=== PATIENT | female | born 1985 | race African-American/Black ===

== ENCOUNTER 2017-05-14 17:12 | Emergency (ER) | payer OTHER ==
[~2017-05-14] VITALS: Ht 160 cm; Wt 121.5 kg
[~2017-05-14 17:12] MED LIST: CYCL-36 PO; IBUP-232 PO; LORT7.5T3 PO; PERM5CRE TOP; Z.0.NO CURRENT MEDS
[2017-05-14 17:13] VITALS: BP 206/111; PULSE 70; RESP 15; TEMP 98.4; O2SAT 100
--- NOTE | 2017-05-14 17:27 | PD ---
Physical Exam Date Seen by Provider: May 14, 2017 Time Seen by Provider: 17:25 Narrative 32-year-old Afro-[place]ian female presents the emergency department with vaginal bleeding for the past 4 weeks. Patient denies any specific pain at this time. She came in because she is feeling weak. She denies fever, chills, or other symptoms. She has no known drug allergies. Last rectal. Started May 01. Patient denies other symptoms at this time. Urinalysis is obtained as well as urine . Vital signs are stable. Patient is awaiting med bed placement. Data Data Last Documented VS Vital Signs Date Time Temp Pulse Resp B/P (MAP) Pulse Ox O2 Delivery O2 Flow Rate FiO2 05/14/17 17:13 98.4 70 15 206/111 (142) 100 MDM Medical Record Reviewed: Yes Supervised Visit with NANCY: Yes Condition: Stable Sundar Taylor May 14, 2017 17:27
[2017-05-14 18:06] LABS: AUTOMATED NEUTROPHIL # 3.6 TH/MM3 (1.8-7.7); BASOPHIL % 0.4 % (0.0-2.0); EOSINOPHIL # 0.1 TH/MM3 (0-0.4); EOSINOPHIL % 1.6 % (0.0-4.0); HEMATOCRIT 33.7 % (35.0-46.0); HEMO FLAGS DIFF FINAL; LYMPH % 35.7 % (9.0-44.0); LYMPHOCYTE # 2.3 TH/MM3 (1.0-4.8); MEAN CELL VOLUME 76.6 FL (80.0-100.0); MEAN CORPUSCULAR HEMOGLOBIN 24.8 PG (27.0-34.0); MEAN CORPUSCULAR HGB CONC 32.3 % (32.0-36.0); MONO % 6.9 % (0.0-8.0); NEUT % 55.4 % (16.0-70.0); PLATELET COUNT 260 TH/MM3 (150-450); WHITE BLOOD COUNT 6.5 TH/MM3 (4.0-11.0)
[2017-05-14 18:19] LABS: ANION GAP 6 MEQ/L (5-15); AST (GOT) 12 U/L (15-37); BICARBONATE 28.2 MEQ/L (21.0-32.0); BLOOD UREA NITROGEN 10 MG/DL (7-18); CHLORIDE 104 MEQ/L (98-107); GLOMERULAR FILTRATION RATE 110 ML/MIN (>89); POTASSIUM 3.2 MEQ/L (3.5-5.1); SODIUM (NA) 138 MEQ/L (136-145)
[2017-05-14 18:23] LABS: ALKALINE PHOSPHATASE 83 U/L (45-117); ALT (GPT) 24 U/L (10-53); TOTAL BILIRUBIN ADULT 0.2 MG/DL (0.2-1.0)
[2017-05-14 18:27] LABS: BLOOD, URINE LARGE (NEG); COMMENT (UR) CULT NOT INDICATED; CULTURE IF INDICATED CULT NOT INDICATED; GLUCOSE,URINE NEG (NEG); KETONE, URINE NEG (NEG); NITRITE,URINE NEG (NEG); PH, URINE 6.5 (5.0-8.5); URINE COLOR LIGHT-RED (YELLW/STRAW)
--- NOTE | 2017-05-14 18:51 | PD ---
HPI Chief Complaint: Bleeding Time Seen by Provider: 18:33 Travel History International Travel<30 days: No Contact w/Intl Traveler<30days: No Traveled to known affect area: No History of Present Illness HPI Patient is a 32-year-old female who comes in complaining of vaginal bleeding for 14 days. She says it has recently gotten heavier. She tried calling her electrical service technician, but they advised she come to the emergency department. She denies any abdominal pain. She denies any chest pain, palpitations or shortness of breath. She says she is changing her pad frequently, every time she uses the restroom, but it is not soaked through. She says she has had an issue with this in the past when she bled for 10 days. [facility] Past Medical History Cardiovascular Problems: Yes (HTN) Diminished Hearing: No ?: Not LMP: 05/01/17 Social History Alcohol Use: No Tobacco Use: Yes (3-4 CIGARS A DAY) Substance Use: No Allergies-Medications (Allergen,Severity, Reaction): Coded Allergies: No Known Allergies (Verified , 05/14/17) Reported Meds & Prescriptions Reported Meds & Active Scripts Active Motrin (Ibuprofen) 600 Mg Tab 600 Mg PO Q8HPRN Flexeril (Cyclobenzaprine HCl) 10 Mg Tab 10 Mg PO Q8HPRN Lortab 7.5/500 (Acetaminophen/Hydrocodone Bitart) Tab 1 Tab PO Q6HPRN FOR PAIN Elimite (Permethrin) 5 % Cr 60 Gm TOP DIRECTED PATIENT INSTRUCTIONS: THOROUGHLY MASSAGE ELIMITE (PERMETHRIN) 5% CREAM INTO THE SKIN FROM HEAD TO TOE COVERING ALL EXTERNAL BODY PARTS. THE CREAM SHOULD BE REMOVED BY WASHING (SHOWER OR BATH) 8 TO 14 HOURS AFTER APPLICATION. PATIENTS MAY EXPERIENCE ITCHING AFTER TREATMENT AND IS RARELY A SIGN OF TREATMENT FAILURE. Reported No Current Meds (Miscellaneous Medication) Misc Review of Systems Except as stated in HPI: all other systems reviewed are Neg General / Constitutional: No: Fever, Chills HENT: No: Headaches Cardiovascular: No: Chest Pain or Discomfort, Palpitations Respiratory: No: Shortness of Breath Gastrointestinal: No: Nausea, Vomiting, Abdominal Pain Genitourinary: Positive: Vaginal Bleeding Skin: No Rash, No Change in Pigmentation Neurologic: No: Weakness, Dizziness Physical Exam Narrative GENERAL: Awake and alert, in no acute distress. SKIN: Focused skin assessment warm/dry. HEAD: Atraumatic. Normocephalic. EYES: Pupils equal and round. No scleral icterus. No conjunctival pallor. ENT: Mucous membranes pink and moist. NECK: Trachea midline. No JVD. CARDIOVASCULAR: Regular rate and rhythm. No murmur appreciated. RESPIRATORY: No accessory muscle use. Clear to auscultation. Breath sounds equal bilaterally. GASTROINTESTINAL: Abdomen soft, non-tender, nondistended. : Exam performed in the presence of a female nurse. No cervical lesions seen. Small amount of blood seen in the vaginal vault, slow flow of blood from the os. MUSCULOSKELETAL: No obvious deformities. No clubbing. No cyanosis. No edema. NEUROLOGICAL: Awake and alert. No obvious cranial nerve deficits. Motor grossly within normal limits. Normal speech. PSYCHIATRIC: Appropriate mood and affect; insight and judgment normal. Data Data Last Documented VS Vital Signs Date Time Temp Pulse Resp B/P (MAP) Pulse Ox O2 Delivery O2 Flow Rate FiO2 05/14/17 18:44 74 18 99 Room Air 05/14/17 17:13 98.4 206/111 (142) Orders Orders Complete Blood Count With Diff (05/14/17 17:27) Comprehensive Metabolic Panel (05/14/17 17:27) Urinalysis - C+S If Indicated (05/14/17 17:27) Ed Urine Pregnancytest Poc (05/14/17 17:27) Labs Laboratory Tests Test 05/14/17 17:34 05/14/17 17:37 White Blood Count 6.5 TH/MM3 Red Blood Count 4.40 MIL/MM3 Hemoglobin 10.9 GM/DL Hematocrit 33.7 % Mean Corpuscular Volume 76.6 FL Mean Corpuscular Hemoglobin 24.8 PG Mean Corpuscular Hemoglobin Concent 32.3 % Red Cell Distribution Width 17.0 % Platelet Count 260 TH/MM3 Mean Platelet Volume 7.4 FL Neutrophils (%) (Auto) 55.4 % Lymphocytes (%) (Auto) 35.7 % Monocytes (%) (Auto) 6.9 % Eosinophils (%) (Auto) 1.6 % Basophils (%) (Auto) 0.4 % Neutrophils # (Auto) 3.6 TH/MM3 Lymphocytes # (Auto) 2.3 TH/MM3 Monocytes # (Auto) 0.4 TH/MM3 Eosinophils # (Auto) 0.1 TH/MM3 Basophils # (Auto) 0.0 TH/MM3 CBC Comment DIFF FINAL Differential Comment Blood Urea Nitrogen 10 MG/DL Creatinine 0.73 MG/DL Random Glucose 86 MG/DL Total Protein 7.3 GM/DL Albumin 3.7 GM/DL Calcium Level 8.6 MG/DL Alkaline Phosphatase 83 U/L Aspartate Amino Transf (AST/SGOT) 12 U/L Alanine Aminotransferase (ALT/SGPT) 24 U/L Total Bilirubin 0.2 MG/DL Sodium Level 138 MEQ/L Potassium Level 3.2 MEQ/L Chloride Level 104 MEQ/L Carbon Dioxide Level 28.2 MEQ/L Anion Gap 6 MEQ/L Estimat Glomerular Filtration Rate 110 ML/MIN Urine Color LIGHT-RED Urine Turbidity CLEAR Urine pH 6.5 Urine Specific [place] 1.015 Urine Protein 30 mg/dL Urine Glucose (UA) NEG mg/dL Urine Ketones NEG mg/dL Urine Occult Blood LARGE Urine Nitrite NEG Urine Bilirubin NEG Urine Urobilinogen LESS THAN 2.0 MG/DL Urine Leukocyte Esterase SMALL Urine RBC /hpf Urine WBC 7 /hpf Microscopic Urinalysis Comment CULT NOT INDICATED MDM Medical Decision Making Medical Screen Exam Complete: Yes Emergency Medical Condition: Yes Medical Record Reviewed: Yes Differential Diagnosis Dysfunctional uterine bleeding versus menorrhagia versus anemia Narrative Course Patient is a 32-year-old female comes in complaining of vaginal bleeding for 14 days. Exam shows a small amount of blood in the vaginal vault. Labs sent show hemoglobin of 10.9, she currently is not requiring a blood transfusion. Patient is advised of things to watch out for and when to return to the ED. Advised of signs and symptoms of to much blood loss. She is advised to call her electrical service technician to make an appointment for further management. Advised to return any time for any worsening symptoms. Diagnosis Primary Impression: Vaginal bleeding Patient Instructions: General Instructions, Menorrhagia (ED) Additional Instructions: Follow-up with gynecology. Make sure to drink plenty of fluids. Return to the ED as needed for any worsening symptoms. Disposition: 01 DISCHARGE HOME Condition: Stable Jada Szymanski MD May 14, 2017 18:51
== END 2017-05-14 19:10 | disposition home or self-care (01) ==
LOC: NEPD 17:12
DX: N93.9 Abnormal uterine and vaginal bleeding, unspecified (principal); I10 Essential (primary) hypertension
CPT/HCPCS: 80053; 81001; 84703; 85025; 99283

== ENCOUNTER 2017-05-28 13:17 | Emergency (ER) | payer OTHER ==
[~2017-05-28] VITALS: Ht 160 cm; Wt 125.0 kg
[2017-05-28 13:19] VITALS: BP 205/103; PULSE 76; RESP 15; TEMP 98.2; O2SAT 98
--- NOTE | 2017-05-28 13:36 | PD ---
HPI Chief Complaint: Permit Review Assistant Problem/Complaint Time Seen by Provider: 13:26 Travel History International Travel<30 days: No Contact w/Intl Traveler<30days: No Traveled to known affect area: No History of Present Illness HPI 32 year old female presents to the ED for evaluation of vaginal bleeding x 28 days. Pt appears well. She reports intermittent bouts of dizziness, but currently is not having any symptoms except for the vaginal bleeding. States it has gotten heavier. Pt was seen her in April for the same and hgb at that time was 10.9. She was to follow up with gynecology and states she did. She reports being placed on "pills to stop the bleeding" but this has not helped. She denies abdominal pain. She has some mild intermittent cramping. She has otherwise been well. Has follow up with gynecology next week. PFSH Past Medical History Cardiovascular Problems: Yes (HTN) Diminished Hearing: No ?: Not Social History Alcohol Use: No Tobacco Use: Yes (3-4 CIGARS A DAY) Substance Use: No Allergies-Medications (Allergen,Severity, Reaction): Coded Allergies: No Known Allergies (Verified , 05/14/17) Reported Meds & Prescriptions Reported Meds & Active Scripts Active Motrin (Ibuprofen) 600 Mg Tab 600 Mg PO Q8HPRN Flexeril (Cyclobenzaprine HCl) 10 Mg Tab 10 Mg PO Q8HPRN Lortab 7.5/500 (Acetaminophen/Hydrocodone Bitart) Tab 1 Tab PO Q6HPRN FOR PAIN Elimite (Permethrin) 5 % Cr 60 Gm TOP DIRECTED PATIENT INSTRUCTIONS: THOROUGHLY MASSAGE ELIMITE (PERMETHRIN) 5% CREAM INTO THE SKIN FROM HEAD TO TOE COVERING ALL EXTERNAL BODY PARTS. THE CREAM SHOULD BE REMOVED BY WASHING (SHOWER OR BATH) 8 TO 14 HOURS AFTER APPLICATION. PATIENTS MAY EXPERIENCE ITCHING AFTER TREATMENT AND IS RARELY A SIGN OF TREATMENT FAILURE. Reported No Current Meds (Miscellaneous Medication) Misc Review of Systems Except as stated in HPI: all other systems reviewed are Neg Physical Exam Narrative GENERAL: Obese female pt ambulatory and in no acute distress SKIN: Warm and dry. HEAD: Atraumatic. Normocephalic. EYES: Pupils equal and round. No scleral icterus. No injection or drainage. ENT: No nasal bleeding or discharge. Mucous membranes pink and moist. NECK: Trachea midline. No JVD. CARDIOVASCULAR: Regular rate and rhythm. RESPIRATORY: No accessory muscle use. Diminished, likely due to girth. Breath sounds equal bilaterally. GASTROINTESTINAL: Abdomen soft, non-tender, nondistended. No guarding; no rebound tenderness Hepatic and splenic margins not palpable. GENITOURINARY: Normal external genitalia without lesions or erythema. Vaginal vault with moderate amount dark blood Cervical os with dark red thick drainage; opened less than a fingertip. No cervical motion tenderness. Uterus nontender and nonenlarged. Bilateral adnexa nontender without masses. MUSCULOSKELETAL: Extremities without clubbing, cyanosis, or edema. No obvious deformities. NEUROLOGICAL: Awake and alert. No obvious cranial nerve deficits. Motor grossly within normal limits. Five out of 5 muscle strength in the arms and legs. Normal speech. PSYCHIATRIC: Appropriate mood and affect; insight and judgment normal. Data Data Last Documented VS Vital Signs Date Time Temp Pulse Resp B/P (MAP) Pulse Ox O2 Delivery O2 Flow Rate FiO2 05/28/17 16:19 70 19 163/95 (117) 97 05/28/17 13:19 98.2 Orders Orders Hgb & Hct (05/28/17 13:29) Iv Access Insert/Monitor (05/28/17 13:32) Sodium Chlor 0.9% 1000 Ml Inj (Ns 1000 M (05/28/17 13:45) Orthostatic Vital Signs (05/28/17 13:32) Labs Laboratory Tests Test 05/28/17 14:00 Hemoglobin 10.8 GM/DL Hematocrit 33.3 % MDM Medical Decision Making Medical Screen Exam Complete: Yes Emergency Medical Condition: Yes Medical Record Reviewed: Yes Differential Diagnosis dysfunctional uterine bleeding vs menses vs dysmenorrhagia vs symptomatic anemia Narrative Course 32 year old female presents to the ED for evaluation of persistent vaginal bleeding x 28 days. Pt appears well. VSS; she is hypertensive, but has a history of this. She reports being on "pills to stop the bleeding." Pt does have moderate amount of dark red blood in the vaginal vault. Her hgb is 10.8. Orthostatics are not concerning. I have discussed the patient with my attending. She will be discharged and advised to keep her appointment with gynecology next week. She agrees to return immediately with any acute worsening of symptoms. Diagnosis Primary Impression: Dysfunctional uterine bleeding Referrals: [employer] Helper Primary Care Physician Patient Instructions: Dysfunctional Uterine Bleeding (ED), General Instructions Additional Instructions: Keep your appointment with Dr. Valdes Follow-up with primary care provider Continue medication as already prescribed Return immediately with any acute worsening of symptoms Med/Other Pt SpecificInfo: No Change to Meds Disposition: 01 DISCHARGE HOME Condition: Stable Maria A Prather May 28, 2017 13:36
[2017-05-28] MEDS ORDERED: SODIUM CHLOR 0.9% 1000 ML INJ 1,000 ML IV ONE (13:45)
[2017-05-28 13:49] VITALS: BP_SYST 167; BP_SYST 204; BP_SYST 224; BP_DIAS 108; BP_DIAS 97; RESP 18; RESP 19
[2017-05-28 14:19] LABS: HEMATOCRIT 33.3 % (35.0-46.0); REVIEW FLAG FINAL
[2017-05-28 15:05] VITALS: BP_SYST 175; BP_SYST 190; BP_DIAS 111; BP_DIAS 112; BP_DIAS 91; RESP 17; RESP 18; RESP 20
[2017-05-28 16:19] VITALS: BP 163/95
== END 2017-05-28 16:20 | disposition home or self-care (01) ==
LOC: NEPD 13:17
DX: N93.8 Other specified abnormal uterine and vaginal bleeding (principal); I10 Essential (primary) hypertension; F17.290 Nicotine dependence, other tobacco product, uncomplicated
CPT/HCPCS: 85014; 85018; 96360; 99284; J7030

== ENCOUNTER 2017-07-07 09:27 | Emergency (ER) | payer OTHER ==
[~2017-07-07] VITALS: Ht 160 cm; Wt 115.0 kg
[2017-07-07 09:30] VITALS: BP 214/124; PULSE 130; RESP 16; TEMP 98.2; O2SAT 99
[2017-07-07] MEDS ORDERED: LISI40TA PO ×2 (09:53→12:14)
[2017-07-07] MEDS ORDERED: AMLO5TAB2 PO ×2 (09:53→12:14)
[2017-07-07 09:55] VITALS: BP 169/103; PULSE 85; RESP 15; TEMP 99; O2SAT 100
[2017-07-07] MEDS ORDERED: PROPARACAINE HCL 0.5% OPHT SOLN 15 ML BTL RIGHT EYE ONE (10:15)
[2017-07-07] MEDS ORDERED: SODIUM CHLORIDE 0.9% FLUSH 10 ML FLUSH IVF PRN (10:15)
[2017-07-07] MEDS ORDERED: FLUORESCEIN SOD 1 MG STRIP RIGHT EYE ONE (10:30)
[2017-07-07 10:33] VITALS: BP 169/103; PULSE 86; RESP 15; TEMP 99; O2SAT 99
--- NOTE | 2017-07-07 10:54 | PD ---
HPI Chief Complaint: Neuro Symptoms/ Deficits Time Seen by Provider: 10:14 Travel History International Travel<30 days: No Contact w/Intl Traveler<30days: No Traveled to known affect area: No History of Present Illness HPI 32-year-old female patient with previous history of TIA, presents to the ER today because she states that she woke up this morning and noticed that her right eye is blurry, she is having discomfort in the right eye and tearing. She states that she had talked to her new primary care doctor, who she has not seen yet, and was told to come to the ER for further evaluation for possible stroke. She denies any dizziness, numbness or weakness, if cult he walking or talking, or any other symptoms. She denies any new medications or new issues. She denies any vomiting, fevers, or other symptoms and denies any previous history of eye issues. Her blood pressures are also elevated today. Modifying Factors: None Associated Signs & Symptoms: Right eye blurriness and tearing Risk Factors: History of hypertension, TIA PFSH Past Medical History Cardiovascular Problems: Yes (HTN) Cerebrovascular Accident: Yes (2013) Diminished Hearing: No Hypertension: Yes Tetanus Vaccination: > 5 Years Influenza Vaccination: No ?: Not Past Surgical History Abdominal Surgery: Yes (hernia sx x3) Cholecystectomy: Yes Social History Alcohol Use: Yes (occ) Tobacco Use: No (3-4 CIGARS A DAY) Substance Use: No Allergies-Medications (Allergen,Severity, Reaction): Coded Allergies: No Known Allergies (Verified Adverse Reaction, Unknown, 07/07/17) Reported Meds & Prescriptions Reported Meds & Active Scripts Active Reported Amlodipine (Amlodipine Besylate) 5 Mg Tab 5 Mg PO DAILY Lisinopril 40 Mg Tab 40 Mg PO DAILY Review of Systems Except as stated in HPI: all other systems reviewed are Neg Physical Exam Narrative GENERAL: Well-developed young -[place] female patient currently in mild distress. Awake and oriented 3. SKIN: Focused skin assessment warm/dry. HEAD: Atraumatic. Normocephalic. EYES: Pupils equal and round. No scleral icterus. No injection or drainage. Vision is 20/30 in both eyes. Mild decreased visual field defects laterally. Normal accommodation. Mild photophobia. ENT: No nasal bleeding or discharge. Mucous membranes pink and moist. NECK: Trachea midline. No JVD. CARDIOVASCULAR: Regular rate and rhythm. No murmur appreciated. RESPIRATORY: No accessory muscle use. Clear to auscultation. Breath sounds equal bilaterally. GASTROINTESTINAL: Abdomen soft, non-tender, nondistended. Hepatic and splenic margins not palpable. MUSCULOSKELETAL: No obvious deformities. No clubbing. No cyanosis. No edema. NEUROLOGICAL: Awake and alert. No obvious cranial nerve deficits. Motor grossly within normal limits. Normal speech. No pronator drift. PSYCHIATRIC: Appropriate mood and affect; insight and judgment normal. Data Data Last Documented VS Vital Signs Date Time Temp Pulse Resp B/P (MAP) Pulse Ox O2 Delivery O2 Flow Rate FiO2 07/07/17 10:33 99.0 86 15 169/103 (125) 99 Room Air Orders Orders Electrocardiogram (07/07/17 10:14) Prothrombin Time / Inr (Pt) (07/07/17 10:14) Act Partial Throm Time (Ptt) (07/07/17 10:14) Complete Blood Count With Diff (07/07/17 10:14) Comprehensive Metabolic Panel (07/07/17 10:14) Drug Screen, Random Urine (07/07/17 10:14) Troponin I (07/07/17 10:14) Ct Brain W/O Iv Contrast(Rout) (07/07/17 10:14) Ecg Monitoring (07/07/17 10:14) Iv Access Insert/Monitor (07/07/17 10:14) Oximetry (07/07/17 10:14) Sodium Chloride 0.9% Flush (Ns Flush) (07/07/17 10:15) Proparacaine 0.5% Opth Soln (Alcaine 0.5 (07/07/17 10:15) Fluorescein Strip (Hciaj-H-Gvqzdl A.T.) (07/07/17 10:30) Ed Discharge Order (07/07/17 12:10) Labs Laboratory Tests Test 07/07/17 10:15 07/07/17 10:30 White Blood Count 6.1 TH/MM3 Red Blood Count 4.18 MIL/MM3 Hemoglobin 9.2 GM/DL Hematocrit 29.8 % Mean Corpuscular Volume 71.2 FL Mean Corpuscular Hemoglobin 22.0 PG Mean Corpuscular Hemoglobin Concent 30.9 % Red Cell Distribution Width 16.8 % Platelet Count 361 TH/MM3 Mean Platelet Volume 7.1 FL Neutrophils (%) (Auto) 56.7 % Lymphocytes (%) (Auto) 35.3 % Monocytes (%) (Auto) 6.1 % Eosinophils (%) (Auto) 1.3 % Basophils (%) (Auto) 0.6 % Neutrophils # (Auto) 3.4 TH/MM3 Lymphocytes # (Auto) 2.1 TH/MM3 Monocytes # (Auto) 0.4 TH/MM3 Eosinophils # (Auto) 0.1 TH/MM3 Basophils # (Auto) 0.0 TH/MM3 CBC Comment DIFF FINAL Differential Comment Prothrombin Time 10.2 SEC Prothromb Time International Ratio 0.9 RATIO Activated Partial Thromboplast Time 27.6 SEC Blood Urea Nitrogen 9 MG/DL Creatinine 0.71 MG/DL Random Glucose 76 MG/DL Total Protein 8.1 GM/DL Albumin 3.9 GM/DL Calcium Level 8.6 MG/DL Alkaline Phosphatase 94 U/L Aspartate Amino Transf (AST/SGOT) 16 U/L Alanine Aminotransferase (ALT/SGPT) 28 U/L Total Bilirubin 0.2 MG/DL Sodium Level 137 MEQ/L Potassium Level 3.4 MEQ/L Chloride Level 106 MEQ/L Carbon Dioxide Level 25.4 MEQ/L Anion Gap 6 MEQ/L Estimat Glomerular Filtration Rate 114 ML/MIN Troponin I LESS THAN 0.02 NG/ML Urine Opiates Screen NEG Urine Barbiturates Screen NEG Urine Amphetamines Screen NEG Urine Benzodiazepines Screen NEG Urine Cocaine Screen NEG Urine Cannabinoids Screen NEG MDM Medical Decision Making Medical Screen Exam Complete: Yes Emergency Medical Condition: Yes Medical Record Reviewed: Yes Interpretation(s) EKG shows NSR, no ST elevation or depression, and no arrhythmias. No significant T-wave inversions. Laboratory Tests Test 07/07/17 10:15 07/07/17 10:30 Hemoglobin 9.2 GM/DL (11.6-15.3) Hematocrit 29.8 % (35.0-46.0) Mean Corpuscular Volume 71.2 FL (80.0-100.0) Mean Corpuscular Hemoglobin 22.0 PG (27.0-34.0) Mean Corpuscular Hemoglobin Concent 30.9 % (32.0-36.0) Potassium Level 3.4 MEQ/L (3.5-5.1) Troponin I LESS THAN 0.02 NG/ML Last [address] 07/07/17 1014 Signed Impressions: Service Date/Time: Friday, July 07, 2017 10:47 - CONCLUSION: Negative noncontrast head CT. Adolfo Alberto MD Differential Diagnosis Right eye blurriness, discomfort: Corneal abrasion versus glaucoma versus CVA versus brain tumor versus metabolic issues Narrative Course Fluorescein exam was done on the eye and there is notable vegetable picker at the 3 o' clock position in the right I, questionable for underlying ulcerated area versus chronic area of inflammation. Pupils are equal and reactive to light bilaterally. There are round, and anterior chamber appears to be fairly clear, no flare, no hyphema. Tonometry was done and pressures were grouped in the 20s to 30s. I am not able to do a dilated eye exam in this case. Patient has no focal neurological deficits and CAT scan was done which do not see any signs of acute intracranial processes. I am not suspecting a CVA in this case. Lab work did not show any significant metabolic issues, no signs of hyperglycemia. Case was discussed with Dr. Hare who agrees to have the patient come to her office at 1 PM so that she can evaluate her eye further. Her blood pressures are fairly elevated in the ER but the patient had ran out of her lisinopril for at least a month and at this point, she is given lisinopril and refills for chronic control for her hypertension. Cardiac enzymes and EKG did not show any signs of acute processes. She is not having chest pains or shortness of breath. She should return for any worsening in symptoms, pain, further vision change, or new symptoms as needed. The plan was discussed with her and she states understanding. Diagnosis Primary Impression: Acute right eye pain Additional Impression: Chronic hypertension Referrals: Gali Hare MD Additional Instructions: Follow-up with Dr. Hare today at 1 PM and her clinic. Follow-up with your primary care doctor regarding ongoing blood pressure control. Take both lisinopril and Norvasc as directed. Return for any worsening in vision change, headache, or new symptoms as needed. Med/Other Pt SpecificInfo: Prescription(s) given Scripts Amlodipine (Amlodipine) 5 Mg Tab 5 MG PO DAILY for Blood Pressure Management, #30 TAB 0 Refills Prov: Briana Arguelles MD 07/07/17 Lisinopril (Lisinopril) 40 Mg Tab 40 MG PO DAILY for Blood Pressure Management, #30 TAB 0 Refills Prov: Briana Arguelles MD 07/07/17 Disposition: 01 DISCHARGE HOME Condition: Stable Briana Arguelles MD Jul 07, 2017 10:54
[2017-07-07 10:58] LABS: AUTOMATED NEUTROPHIL # 3.4 TH/MM3 (1.8-7.7); BASOPHIL % 0.6 % (0.0-2.0); EOSINOPHIL # 0.1 TH/MM3 (0-0.4); EOSINOPHIL % 1.3 % (0.0-4.0); HEMATOCRIT 29.8 % (35.0-46.0); HEMO FLAGS DIFF FINAL; LYMPH % 35.3 % (9.0-44.0); LYMPHOCYTE # 2.1 TH/MM3 (1.0-4.8); MEAN CELL VOLUME 71.2 FL (80.0-100.0); MEAN CORPUSCULAR HGB CONC 30.9 % (32.0-36.0); MONO % 6.1 % (0.0-8.0); NEUT % 56.7 % (16.0-70.0); PLATELET COUNT 361 TH/MM3 (150-450); RED BLOOD COUNT 4.18 MIL/MM3 (4.00-5.30); RED CELL DISTRIBUTION WIDTH 16.8 % (11.6-17.2); WHITE BLOOD COUNT 6.1 TH/MM3 (4.0-11.0)
--- NOTE | 2017-07-07 11:02 | RADRPT ---
EXAM DATE/TIME: 07/07/2017 10:47 [facility] COMPARISON: No previous studies available for comparison. INDICATIONS : Right eye visual changes. Cephalgia. RADIATION DOSE: 33.14 CTDIvol (mGy) MEDICAL HISTORY : Hypertension. Cerebrovascular disease. SURGICAL HISTORY : Cholecystectomy. ENCOUNTER: Initial ACUITY: 1 day PAIN SCALE: 4/10 LOCATION: Right cranial TECHNIQUE: Multiple contiguous axial images were obtained of the head. Using automated exposure control and adj ustment of the mA and/or kV according to patient size, radiation dose was kept as low as reasonably a chievable to obtain optimal diagnostic quality images. DICOM format image data is available electro nically for review and comparison. FINDINGS: CEREBRUM: The ventricles are normal. No evidence of midline shift, mass lesion, hemorrhage or acute infarction . No extra-axial fluid collections are seen. POSTERIOR FOSSA: The cerebellum and brainstem are intact. The 4th ventricle is midline. The cerebellopontine angle i s unremarkable. EXTRACRANIAL: The globes have a normal appearance. Sinuses are clear. SKULL: The calvaria is intact. No evidence of skull fracture. CONCLUSION: Negative noncontrast head CT. Adolfo Alberto MD on July 07, 2017 at 10:59 Board Certified Radiologist. This report was verified electronically.
[2017-07-07 11:04] LABS: APTT (PATIENT) 27.6 SEC (24.3-30.1); INTERNATIONAL NORMALIZED RATIO 0.9 RATIO; PROTHROMBIN TIME - PATIENT 10.2 SEC (9.8-11.6)
[2017-07-07 11:09] LABS: ANION GAP 6 MEQ/L (5-15); AST (GOT) 16 U/L (15-37); BICARBONATE 25.4 MEQ/L (21.0-32.0); BLOOD UREA NITROGEN 9 MG/DL (7-18); CHLORIDE 106 MEQ/L (98-107); GLOMERULAR FILTRATION RATE 114 ML/MIN (>89); POTASSIUM 3.4 MEQ/L (3.5-5.1); SODIUM (NA) 137 MEQ/L (136-145)
[2017-07-07 11:14] LABS: ALKALINE PHOSPHATASE 94 U/L (45-117); ALT (GPT) 28 U/L (10-53); TOTAL BILIRUBIN ADULT 0.2 MG/DL (0.2-1.0)
[2017-07-07] MEDS ORDERED: LISINOPRIL 20 MG TAB PO ONE (12:15)
[2017-07-07 12:43] VITALS: BP 150/90
--- NOTE | 2017-07-07 13:58 | EKG ---
Date Performed: 07/07/2017 Time Performed: 09:54:31 PTAGE: 32 years EKG: Sinus rhythm NONSPECIFIC T-WAVE ABNORMALITY BORDERLINE ECG NO PREVIOUS TRACING DOCTOR: Jatinder Richards Interpretating Date/Time 07/07/2017 13:57:00
== END 2017-07-07 12:48 | disposition home or self-care (01) ==
LOC: NEPE 09:27
DX: H57.11 Ocular pain, right eye (principal); R94.31 Abnormal electrocardiogram [ECG] [EKG]; I10 Essential (primary) hypertension; F17.290 Nicotine dependence, other tobacco product, uncomplicated; Z79.899 Other long term (current) drug therapy
CPT/HCPCS: 70450; 80053; 80307; 84484; 85025; 85610; 85730; 93005; 99285